=== PATIENT | male | born 1970 | race African-American/Black ===

== ENCOUNTER 2023-02-22 18:53 | Emergency (ER) | payer SELFPAY ==
[2023-02-22] MEDS ORDERED: Acetaminophen 500 MG TAB ONE (19:30)
== END 2023-02-22 21:19 | disposition home or self-care (01) ==
LOC: CSHERS 18:53
DX: R51.9 Headache, unspecified (principal); I10 Essential (primary) hypertension; F17.210 Nicotine dependence, cigarettes, uncomplicated
CPT/HCPCS: 99283